=== PATIENT | female | born 1950 | race Caucasian/White ===

== ENCOUNTER → 2019-04-24 | Outpatient (CLI) | payer MEDICARE, BC ==
[2019-04-24 12:41] LABS: ABSOLUTE BASOPHILS # (AUTO) 0.1 10^3/uL (0.0-0.2); ABSOLUTE EOSINOPHILS # (AUTO) 0.3 10^3/uL (0.0-0.6); ABSOLUTE LYMPHOCYTES (AUTO) 2.1 10^3/uL (0.5-4.7); ABSOLUTE MONOCYTES (AUTO) 0.7 10^3/uL (0.1-1.4); BASOPHILS % (AUTO) 1.5 % (0-2); EOSINOPHILS % (AUTO) 4.4 % (0-6); HEMATOCRIT 43.2 % (36.0-47.0); LYMPHOCYTES % (AUTO) 34.1 % (13-45); MEAN CORPUSCULAR HEMOGLOBIN 31.3 pg (27.0-33.4); MEAN CORPUSCULAR HGB CONC 34.7 g/dL (32.0-36.0); MEAN CORPUSCULAR VOLUME 90 fl (80-97); MONOCYTES % (AUTO) 11.8 % (3-13); PLATELET COUNT 190 10^3/uL (150-450); RED CELL DISTRIBUTION WIDTH 13.6 % (11.5-14.0); SEGMENTED NEUTROPHILS % (AUTO) 48.2 % (42-78); TOTAL CELLS COUNTED % (AUTO) 100 %; WHITE BLOOD COUNT 6.2 10^3/uL (4.0-10.5)
[2019-04-24 12:59] LABS: ALANINE AMINOTRANSFERASE 31 U/L (9-52); ALBUMIN 4.4 g/dL (3.5-5.0); ALKALINE PHOSPHATASE 55 U/L (38-126); ANION GAP 7 (5-19); ASPARTATE AMINO TRANSFERASE 24 U/L (14-36); BILIRUBIN,DIRECT 0.3 mg/dL (0.0-0.4); BILIRUBIN,TOTAL 1.2 mg/dL (0.2-1.3); BLOOD UREA NITROGEN 16 mg/dL (7-20); CALCIUM 10.3 mg/dL (8.4-10.2); CARBON DIOXIDE 32 mmol/L (22-30); CHLORIDE 101 mmol/L (98-107); GLUCOSE 94 mg/dL (75-110); POTASSIUM 4.4 mmol/L (3.6-5.0); SODIUM 139.6 mmol/L (137-145); TOTAL PROTEIN 7.4 g/dL (6.3-8.2)
== END ==
LOC: OD 11:37
PROVIDERS: ATTEND Physician Assistant
DX: Z11.2 Encounter for screening for other bacterial diseases (principal); I10 Essential (primary) hypertension
CPT/HCPCS: 36415; 80053; 85025; 87070

== ENCOUNTER 2020-01-06 12:40 | Observation (INO) | payer MEDICARE, BC ==
--- NOTE | 2020-01-06 13:20 | ER Document Report ---
ED Medical Screen (RME) - General Chief Complaint: Dizziness Stated Complaint: DIZZINESS, LEFT ARM NUMBNESS Time Seen by Provider: 01/06/20 13:18 Primary Care Provider: NAVEED SHAH PA-C [Primary Care Provider] - Follow up as needed Mode of Arrival: Wheelchair Information source: Patient Notes: 69-year-old female presented to ED for complaint of a weird sensation wavelike coming over her while she was driving. She states soon after that she had some left chest pain and then numbness to her left shoulder and arm. She states she would not of been so upset except for that did happen the second time. She states she is continued to have some numbness in the left shoulder and some pain in the left side of her chest. She states the pain is about a 2 at this time. She states that its worst it was a 4. She states she has high blood pressure high cholesterol and hyperinsulinemia. She states she does take metformin for the hyperinsulinemia I have greeted and performed a rapid initial assessment of this patient. A comprehensive ED assessment and evaluation of the patient, analysis of test results and completion of medical decision making process will be conducted by an additional ED providers. TRAVEL OUTSIDE OF THE [place] IN LAST 30 DAYS: No - Related Data Allergies/Adverse Reactions: codeine [Codeine] Adverse Reaction (Intermediate, Verified 01/06/20 13:16) Elevated heart rate prednisone [Prednisone] Adverse Reaction (Verified 01/06/20 13:16) Past Medical History - Past Medical History Cardiac Medical History: Reports: Hx Hypercholesterolemia, Hx Hypertension Denies: Hx Coronary Artery Disease, Hx Heart Attack Pulmonary Medical History: Reports: Hx Bronchitis - once a yr, Hx Pneumonia - 1- 2 yrs ago last time Denies: Hx Asthma, Hx COPD, Hx Tuberculosis Neurological Medical History: Denies: Hx Cerebrovascular Accident, Hx Seizures Endocrine Medical History: Reports: Hx Hypothyroidism. Denies: Hx Graves' Disease, Hx Hyperthyroidism GI Medical History: Reports: Hx Irritable Bowel. Denies: Hx Crohn's Disease, Hx Gastroesophageal Reflux Disease, Hx Hepatitis, Hx Hiatal Hernia, Hx Liver Failure, Hx Pancreatitis, Hx Ulcer Musculoskeltal Medical History: Reports Hx Arthritis - Back, Denies Hx Systemic Lupus Erythematosus Infectious Medical History: Denies: Hx Hepatitis Past Surgical History: Reports: Hx Appendectomy, Hx Cholecystectomy. Denies: Hx Colostomy, Hx Hysterectomy, Hx Mastectomy, Hx Open Heart Surgery, Hx Pacemaker - Immunizations Hx Diphtheria, Pertussis, Tetanus Vaccination: Yes Physical Exam - Vital signs Vitals: Temp Pulse Resp BP Pulse Ox 98.2 F 69 16 151/69 H 96 01/06/20 13:04 01/06/20 13:04 01/06/20 13:04 01/06/20 13:04 01/06/20 13:04 Course - Vital Signs Vital signs: Temp Pulse Resp BP Pulse Ox 98.2 F 69 16 151/69 H 96 01/06/20 13:04 01/06/20 13:04 01/06/20 13:04 01/06/20 13:04 01/06/20 13:04 Doctor's Discharge - Discharge Referrals: NAVEED SHAH PA-C [Primary Care Provider] - Follow up as needed
[2020-01-06] MEDS ORDERED: ASPIRIN 81 MG TABLET, CHEWABLE PO ONE (13:23)
--- NOTE | 2020-01-06 13:28 | EKG REPORT ---
SEVERITY:- ABNORMAL ECG - SINUS RHYTHM LEFT VENTRICULAR HYPERTROPHY : Confirmed by: Dominic Lenz MD 06-Jan-2020 13:28:12
--- NOTE | 2020-01-06 13:58 | RADIOLOGY REPORT (SQ) ---
EXAM DESCRIPTION: CHEST 2 VIEWS COMPLETED DATE/TIME: 01/06/2020 12:35 pm REASON FOR STUDY: Chest pain COMPARISON: 02/12/2014 EXAM PARAMETERS: NUMBER OF VIEWS: two views TECHNIQUE: Digital Frontal and Lateral radiographic views of the chest acquired. RADIATION DOSE: NA LIMITATIONS: none FINDINGS: LUNGS AND PLEURA: No opacities, masses or pneumothorax. No pleural effusion. MEDIASTINUM AND HILAR STRUCTURES: No masses or contour abnormalities. HEART AND VASCULAR STRUCTURES: Heart normal size. No evidence for failure. BONES: No acute findings. HARDWARE: None in the chest. OTHER: No other significant finding. IMPRESSION: NO ACUTE RADIOGRAPHIC FINDING IN THE CHEST. TECHNICAL DOCUMENTATION: JOB ID: [id number] 2010 [employer]- All Rights Reserved Reading location - IP/workstation name: [email or web address]
[2020-01-06 14:01] LABS: ABSOLUTE BASOPHILS # (AUTO) 0.1 10^3/uL (0.0-0.2); ABSOLUTE EOSINOPHILS # (AUTO) 0.2 10^3/uL (0.0-0.6); ABSOLUTE LYMPHOCYTES (AUTO) 1.7 10^3/uL (0.5-4.7); ABSOLUTE MONOCYTES (AUTO) 0.6 10^3/uL (0.1-1.4); ABSOLUTE NEUT (AUTO) 3.6 10^3/uL (1.7-8.2); BASOPHILS % (AUTO) 1.2 % (0-2); EOSINOPHILS % (AUTO) 3.9 % (0-6); HEMATOCRIT 43.6 % (36.0-47.0); HEMOGLOBIN 15.4 g/dL (12.0-15.5); MEAN CORPUSCULAR HGB CONC 35.3 g/dL (32.0-36.0); MEAN CORPUSCULAR VOLUME 91 fl (80-97); MONOCYTES % (AUTO) 10.1 % (3-13); PLATELET COUNT 205 10^3/uL (150-450); RED BLOOD COUNT 4.81 10^6/uL (3.72-5.28); RED CELL DISTRIBUTION WIDTH 13.2 % (11.5-14.0); SEGMENTED NEUTROPHILS % (AUTO) 57.8 % (42-78); TOTAL CELLS COUNTED % (AUTO) 100 %; WHITE BLOOD COUNT 6.2 10^3/uL (4.0-10.5)
[2020-01-06 14:15] LABS: ALBUMIN 4.6 g/dL (3.5-5.0); ALKALINE PHOSPHATASE 59 U/L (38-126); ANION GAP 9 (5-19); ASPARTATE AMINO TRANSFERASE 25 U/L (14-36); BILIRUBIN,DIRECT 0.1 mg/dL (0.0-0.4); BILIRUBIN,TOTAL 1.1 mg/dL (0.2-1.3); BLOOD UREA NITROGEN 15 mg/dL (7-20); CALCIUM 10.2 mg/dL (8.4-10.2); CARBON DIOXIDE 30 mmol/L (22-30); CHLORIDE 101 mmol/L (98-107); GLUCOSE 102 mg/dL (75-110); POTASSIUM 4.3 mmol/L (3.6-5.0); TOTAL PROTEIN 7.9 g/dL (6.3-8.2)
--- NOTE | 2020-01-06 15:58 | ER Document Report ---
ED General - General Chief Complaint: Arm Problem Stated Complaint: DIZZINESS, LEFT ARM NUMBNESS Time Seen by Provider: 01/06/20 13:18 Primary Care Provider: NAVEED SHAH PA-C [NO LOCAL MD] - Follow up as needed Mode of Arrival: Wheelchair Information source: Patient Notes: Patient is a 69-year-old female presenting to the emergency department chief complaint of near syncope and dizziness. Patient states it occurred while driving at about 1230 this morning. She states that it was very transient in nature and feels back to baseline other than the left shoulder and upper chest discomfort. Patient states that after the event she had left arm and shoulder pain/discomfort. Patient denies travel history trauma history sick contacts bad food exposure. Patient denies nausea vomiting diarrhea cough or cold symptoms. TRAVEL OUTSIDE OF THE [place] IN LAST 30 DAYS: No - Related Data Allergies/Adverse Reactions: codeine [Codeine] Adverse Reaction (Intermediate, Verified 01/06/20 13:16) Elevated heart rate prednisone [Prednisone] Adverse Reaction (Verified 01/06/20 13:16) Home Medications: metformin - hyper insulin. htn. atenolol. asa. zetia. flonase. synthroid. temisnelan/hctz. metformin. b12. coq10. vit e d3. mag. vitamin c Past Medical History - General Information source: Patient - Social History Smoking Status: Former Smoker Chew tobacco use (# tins/day): No Frequency of alcohol use: None Drug Abuse: None Lives with: Spouse/Significant other Family History: Reviewed & Not Pertinent Patient has suicidal ideation: No Patient has homicidal ideation: No - Past Medical History Cardiac Medical History: Reports: Hx Hypercholesterolemia, Hx Hypertension Denies: Hx Coronary Artery Disease, Hx Heart Attack Pulmonary Medical History: Reports: Hx Bronchitis - once a yr, Hx Pneumonia - 1- 2 yrs ago last time Denies: Hx Asthma, Hx COPD, Hx Tuberculosis Neurological Medical History: Denies: Hx Cerebrovascular Accident, Hx Seizures Endocrine Medical History: Reports: Hx Hypothyroidism. Denies: Hx Graves' Disease, Hx Hyperthyroidism GI Medical History: Reports: Hx Irritable Bowel. Denies: Hx Crohn's Disease, Hx Gastroesophageal Reflux Disease, Hx Hepatitis, Hx Hiatal Hernia, Hx Liver Failure, Hx Pancreatitis, Hx Ulcer Musculoskeletal Medical History: Reports Hx Arthritis - Back, Denies Hx Systemic Lupus Erythematosus Infectious Medical History: Denies: Hx Hepatitis Past Surgical History: Reports: Hx Appendectomy, Hx Cholecystectomy. Denies: Hx Colostomy, Hx Hysterectomy, Hx Mastectomy, Hx Open Heart Surgery, Hx Pacemaker - Immunizations Hx Diphtheria, Pertussis, Tetanus Vaccination: Yes Hx Pneumococcal Vaccination: 11/04/08 Review of Systems - Review of Systems Notes: REVIEW OF SYSTEMS: CONSTITUTIONAL : Denies fever, chills, or sweats. Denies recent illness. EENT: Denies eye, ear, throat, or mouth pain or symptoms. Denies nasal or sinus congestion. CARDIOVASCULAR: Denies chest pain. RESPIRATORY: Denies cough, cold, or chest congestion. Denies shortness of breath, difficulty breathing, or wheezing. GASTROINTESTINAL: Denies abdominal pain. Denies nausea, vomiting, or diarrhea. Denies constipation. GENITOURINARY: Denies difficulty urinating, painful urination, burning, frequ ency, or blood in urine. MUSCULOSKELETAL: Denies neck or back pain or joint pain or swelling. Patient reports left shoulder and arm pain after the event. SKIN: Denies rash or skin lesions. HEMATOLOGIC : Denies easy bruising or bleeding. NEUROLOGICAL: Patient reports dizziness/near syncope while driving at about 1230 this morning without provocation. PSYCHIATRIC: Denies suicidal or homicidal ideations 10 Systems are negative unless otherwise specified above Physical Exam - Vital signs Vitals: Temp Pulse Resp BP Pulse Ox 98.2 F 69 16 151/69 H 96 01/06/20 13:04 01/06/20 13:04 01/06/20 13:04 01/06/20 13:04 01/06/20 13:04 Notes: PHYSICAL EXAMINATION: GENERAL: Well-appearing, well-nourished and in no acute distress. HEAD: Atraumatic, normocephalic. EYES: Pupils equal round and reactive to light, extraocular movements intact, sclera anicteric, conjunctiva are normal. ENT: nares patent, oropharynx clear without exudates. Moist mucous membranes. NECK: Normal range of motion, supple without lymphadenopathy, no appreciable JVD LUNGS: Lungs clear to auscultation bilaterally and equal. No wheezes rales or rhonchi. HEART: Regular rate and rhythm without murmurs ABDOMEN: Soft, nontender, normal bowel sounds. No guarding, no rebound. No masses appreciated. EXTREMITIES: Active full range of motion, no pitting or edema. No cyanosis. 2+ pulses x4 NEUROLOGICAL: No focal neurological deficits. Moves all extremities spontaneously and on command. SKIN: Warm, Dry, and intact. Normal turgor, no rashes or lesions noted. - Notes Notes: PHYSICAL EXAMINATION: GENERAL: Well-appearing, well-nourished and in no acute distress. HEAD: Atraumatic, normocephalic. EYES: Pupils equal round and reactive to light, extraocular movements intact, sclera anicteric, conjunctiva are normal. ENT: nares patent, oropharynx clear without exudates. Moist mucous membranes. NECK: Normal range of motion, supple without lymphadenopathy, no appreciable JVD LUNGS: Lungs clear to auscultation bilaterally and equal. No wheezes rales or rhonchi. HEART: Regular rate and rhythm without murmurs ABDOMEN: Soft, nontender, normal bowel sounds. No guarding, no rebound. No masses appreciated. EXTREMITIES: Active full range of motion, no pitting or edema. No cyanosis. 2+ pulses x4 NEUROLOGICAL: At time of evaluation the patient is alert and oriented x3, Glascow coma scale of 15, cranial nerves II through XII are grossly intact, sensations intact, motor is intact, there are no signs of nystagmus, there is no pronator drift, there is no facial asymmetry, tongue protrusion is midline, reflexes are equal and bilateral, patient ambulates without ataxia, patient answers all questions appropriately follows commands appropriately. SKIN: Warm, Dry, and intact. Normal turgor, no rashes or lesions noted. Course - Re-evaluation Re-evalutation: 01/06/20 17:06 Patient has been maintained in the emergency department on a transportation sales consultant while present. Patient has been reevaluated several times while in the emergency department and no signs of decompensation have been noted. After evaluation of laboratory EKG and radiologic studies I see no signs of pneumonia, pneumothorax, acute myocardial infarction, unstable angina dissection or pulmonary embolism, there are no signs of rib fractures, no signs of acute coronary syndrome and at this time feel the patient with her symptomatology I feel most comfortable with the patient staying for cardiac work-up/rule out. Patient has continued to be pain-free. Patient did receive aspirin per protocol in triage and is receiving half an inch of Nitropaste in the emergency department. - Vital Signs Vital signs: Temp Pulse Resp BP Pulse Ox 98.2 F 68 15 151/69 H 96 01/06/20 13:04 01/06/20 16:13 01/06/20 16:13 01/06/20 13:04 01/06/20 13:04 - Laboratory Result Diagrams: 01/06/20 13:46 01/06/20 13:46 Discharge - Discharge Clinical Impression: Dizziness, Anginal equivalent Arrhythmia Qualifiers: Arrhythmia type: unspecified cardiac arrhythmia Qualified Code(s): I49.9 - Cardiac arrhythmia, unspecified Condition: Stable Disposition: ADMITTED OBSERVATION Admitting Provider: Darío (Hospitalist) Unit Admitted: Telemetry Referrals: NAVEED SHAH PA-C [NO LOCAL MD] - Follow up as needed
[2020-01-06] MEDS ORDERED: NITROGLYCERIN 2% OINTMENT 1 GM PACKET TP ONE (17:05)
[2020-01-06] MEDS ORDERED: ACETAMINOPHEN 325 MG TABLET PO PRN (17:57)
[2020-01-06] MEDS ORDERED: IPRATROPIUM/ALBUTEROL 0.5-2.5 MG/3 ML AMPUL NEB PRN (17:57)
[2020-01-06] MEDS ORDERED: OXYCODONE-ACETAMINOPHEN 5-325 MG TABLET PO PRN (17:57)
[2020-01-06] MEDS ORDERED: ZOLPIDEM TARTRATE 5 MG TABLET PO PRN (17:57)
[2020-01-06] MEDS ORDERED: MAGNESIUM HYDROXIDE SUSP 30 ML UDCUP PO PRN (17:57)
[2020-01-06] MEDS ORDERED: ONDANSETRON 4 MG TAB.RAPDIS PO PRN (17:57)
--- NOTE | 2020-01-06 18:17 | PDOC H&P ---
History of Present Illness Admission Date/PCP: 01/06/20 17:36 TONY KIDD MD Patient complains of: Feeling somewhat dizzy and woozy whilst driving today. History of Present Illness: SHANNON POWELL is a 69 year old female Who presents to the emergency room with complaints of feeling somewhat dizzy and woozy. She said she was driving. She had been fine prior to this and then started driving and felt somewhat out of sorts. She said she felt like she may be going to pass out. She pulled over and this feeling lasted a few seconds and then went away. She started driving again and said she had another episode. She complained of associated transient chest pain with radiation down her left shoulder. This symptom also disappeared after a few seconds. She decided to come to the emergency room for further evaluation though. She gives a history of her mother having a heart attack at age 50. She has of denies any significant coronary artery disease. She denies smoking or hypertension. She started using metformin a few months ago but otherwise denies any other significant issues. EKG was found to be without any arrhythmia. Past Medical History Cardiac Medical History: Reports: Hyperlipidema, Hypertension Denies: Coronary Artery Disease, Myocardial Infarction Pulmonary Medical History: Reports: Bronchitis - once a yr, Pneumonia - 1-2 yrs ago last time Denies: Asthma, Chronic Obstructive Pulmonary Disease (COPD), Tuberculosis Neurological Medical History: Denies: Seizures Endocrine Medical History: Reports: Hypothyroidism Denies: Hyperthyroidism GI Medical History: Denies: Crohn's Disease, Gastroesophageal Reflux Disease, Hepatitis, Hiatal Hernia Musculoskeltal Medical History: Reports: Arthritis - Back Hematology: Denies: Anemia, Sickle Cell Disease Past Surgical History Past Surgical History: Reports: Appendectomy, Cholecystectomy Denies: Amputation, Colostomy, Hysterectomy, Mastectomy, Pacemaker Social History Information Source: Patient Lives with: Spouse/Significant other Smoking Status: Former Smoker Electronic Cigarette use?: No Hx Recreational Drug Use: No Hx Prescription Drug Abuse: No - Advance Directive Resuscitation Status: Full Code Family History Family History: Reviewed & Not Pertinent Parental Family History Reviewed: Yes Children Family History Reviewed: Yes Sibling(s) Family History Reviewed.: Yes Medication/Allergy Home Medications: Aspirin [Aspirin 81 mg Chewable Tablet] 81 mg PO DAILY 11/29/11 Levothyroxine Sodium [Synthroid 112 Mcg Tablet] 112 mcg PO DAILY 11/29/11 Co Q-10 1 tab PO DAILY 01/15/12 Fluticasone Furoate 2 spray NASL PRN PRN 01/15/12 Vitamin E 400 Unit Capsule 1 cap PO DAILY 01/15/12 Ezetimibe [Zetia 10 mg Tablet] 10 mg PO DAILY 12/07/13 Atenolol [Tenormin] 25 mg PO DAILY 01/06/20 Cholecalciferol (Vitamin D3) [Vitamin D3] 5,000 unit PO DAILY 01/06/20 Cyanocobalamin (Vitamin B-12) [Vitamin B-12 1000 mcg Tablet] 1,000 mcg PO DAILY 01/06/20 Metformin HCl [Metformin HCl ER] 500 mg PO MEALS 01/06/20 Telmisartan/Hydrochlorothiazid [Telmisartan-Hctz 40-12.5 mg Tb] 1 tab PO DAILY 01/06/20 Allergies/Adverse Reactions: codeine [Codeine] Adverse Reaction (Intermediate, Verified 01/06/20 13:16) Elevated heart rate prednisone [Prednisone] Adverse Reaction (Verified 01/06/20 13:16) Review of Systems All systems: reviewed and no additional remarkable complaints except as stated Neurological: PRESENT: dizziness Physical Exam Vital Signs: Temp Pulse Resp BP Pulse Ox 98.2 F 68 15 151/69 H 96 01/06/20 13:04 01/06/20 16:13 01/06/20 16:13 01/06/20 13:04 01/06/20 13:04 Intake & Output 01/05/20 01/06/20 01/07/20 06:59 06:59 06:59 Weight 91.626 kg General appearance: PRESENT: no acute distress, well-developed, well-nourished Head exam: PRESENT: atraumatic, normocephalic Eye exam: PRESENT: conjunctiva pink, EOMI, PERRLA. ABSENT: scleral icterus Ear exam: PRESENT: normal external ear exam Mouth exam: PRESENT: moist, tongue midline Neck exam: ABSENT: carotid bruit, JVD, lymphadenopathy, thyromegaly Respiratory exam: PRESENT: clear to auscultation tami. ABSENT: rales, rhonchi, wheezes Cardiovascular exam: PRESENT: RRR. ABSENT: diastolic murmur, rubs, systolic murmur Pulses: PRESENT: normal dorsalis pedis pul Vascular exam: PRESENT: normal capillary refill GI/Abdominal exam: PRESENT: normal bowel sounds, soft. ABSENT: distended, guarding, mass, organolmegaly, rebound, tenderness Rectal exam: PRESENT: deferred Extremities exam: PRESENT: full ROM. ABSENT: calf tenderness, clubbing, pedal edema Neurological exam: PRESENT: alert, awake, oriented to person, oriented to place, oriented to time, oriented to situation, CN II-XII grossly intact. ABSENT: motor sensory deficit Psychiatric exam: PRESENT: appropriate affect, normal mood. ABSENT: homicidal ideation, suicidal ideation Skin exam: PRESENT: dry, intact, warm. ABSENT: cyanosis, rash Results Laboratory Results: 01/06/20 13:46 01/06/20 13:46 01/06/20 01/06/20 13:46 13:46 WBC 6.2 RBC 4.81 Hgb 15.4 Hct 43.6 MCV 91 MCH 32.0 MCHC 35.3 RDW 13.2 Plt Count 205 Seg Neutrophils % 57.8 Sodium 140.1 Potassium 4.3 Chloride 101 Carbon Dioxide 30 Anion Gap 9 BUN 15 Creatinine 0.69 Est GFR ( Amer) > 60 Glucose 102 Calcium 10.2 Total Bilirubin 1.1 AST 25 Alkaline Phosphatase 59 Total Protein 7.9 Albumin 4.6 01/06/20 01/06/20 13:46 16:41 Troponin I < 0.012 < 0.012 Impressions: Chest X-Ray 01/06/20 13:22 IMPRESSION: NO ACUTE RADIOGRAPHIC FINDING IN THE CHEST. Assessment and Plan - Diagnosis (1) Dizziness Is this a current diagnosis for this admission?: Yes (2) Chest pain Is this a current diagnosis for this admission?: Yes - Plan Summary Summary: Patient symptoms are really not clear. She will be admitted under observation. We will obtain serial cardiac enzymes as well as obtain a CTA as she had compl ained of dizziness. Echocardiogram can be obtained as outpatient. A carotid Doppler study will also be done. - Time Time Spent with patient: 25-34 minutes
--- NOTE | 2020-01-06 19:32 | RADIOLOGY REPORT (SQ) ---
EXAM DESCRIPTION: CT HEAD WITHOUT COMPLETED DATE/TIME: 01/06/2020 7:08 pm REASON FOR STUDY: Transient dizziness I67.81 ACUTE CEREBROVASCULAR INSUFFICIENCY COMPARISON: 2009 TECHNIQUE: Axial images acquired through the brain without intravenous contrast. Images reviewed wi th bone, brain and subdural windows. Images stored on PACS. All CT scanners at this facility use dose modulation, iterative reconstruction, and/or weight based d osing when appropriate to reduce radiation dose to as low as reasonably achievable (ALARA). [facility]: Dose Right [facility]: [employer] [facility]: Dose Right [facility]: Teradose 4D [facility]: [employer] RADIATION DOSE: CT Rad equipment meets quality standard of care and radiation dose reduction techniq ues were employed. CTDIvol: 53.2 mGy. DLP: 1017 mGy-cm. mGy. LIMITATIONS: None. FINDINGS: VENTRICLES: Normal size and contour. CEREBRUM: No mass effect. No hemorrhage. No midline shift. Normal peña/white matter differentiatio n. No evidence for acute territorial infarction. CEREBELLUM: No mass effect. No hemorrhage. No alteration of density. No evidence for acute infarct ion. EXTRAAXIAL SPACES: No fluid collections. ORBITS AND GLOBE: Symmetrical contour of the globes. CALVARIUM: No depressed skull fracture. PARANASAL SINUSES: No air-fluid level. SOFT TISSUES: No hematoma. IMPRESSION: No acute intracranial hemorrhage or acute territorial infarct. TECHNICAL DOCUMENTATION: JOB ID: [id number] [place] [id number]: Final reports with documentation of one or more dose reduction techniques (e.g., Automate d exposure control, adjustment of the mA and/or kV according to patient size, use of iterative recons truction technique) 2010 [employer]- All Rights Reserved Reading location - IP/workstation name: [email or web address]
[2020-01-07 06:01] LABS: CHOLESTEROL 178.45 mg/dL (0-200); TRIGLYCERIDES 204 mg/dL (<150)
[2020-01-07 06:10] LABS: VLDL CHOLESTEROL 40.8 mg/dL (10-31)
[2020-01-07 06:13] LABS: DIRECT LDL 108 mg/dL (<100)
[2020-01-07] MEDS ORDERED: (PENDING PHARMACY ID) (Metformin Hcl [Metformin Hcl Er] 500 MG) PO SCH (08:00)
[2020-01-07] MEDS ORDERED: ASPIRIN 81 MG TABLET, CHEWABLE PO SCH (10:00)
[2020-01-07] MEDS ORDERED: LOSARTAN POTASSIUM 50 MG TABLET PO SCH (10:00)
[2020-01-07] MEDS ORDERED: CYANOCOBALAMIN (VITAMIN B-12) 1,000 MCG TABLET PO SCH (10:00)
[2020-01-07] MEDS ORDERED: EZETIMIBE 10 MG TABLET PO SCH (10:00)
[2020-01-07] MEDS ORDERED: LEVOTHYROXINE SODIUM 0.112 MG TABLET PO SCH (10:00)
[2020-01-07] MEDS ORDERED: CHOLECALCIFEROL (D3) 1,000 UNIT (25 MCG) TABLET PO SCH (10:00)
[2020-01-07] MEDS ORDERED: VITAMIN E (DL, ACETATE) 400 UNIT CAPSULE PO SCH (10:00)
[2020-01-07] MEDS ORDERED: CO Q10 PO SCH (10:00)
[2020-01-07] MEDS ORDERED: (PENDING PHARMACY ID) (Atenolol [Tenormin] 25 MG) PO SCH (10:00)
[2020-01-07] MEDS ORDERED: VITAMIN E 400 UNIT PO SCH (10:00)
[2020-01-07] MEDS ORDERED: ATENOLOL 50 MG TABLET PO SCH (10:00)
[2020-01-07] MEDS ORDERED: ENOXAPARIN SODIUM INJ 40 MG/0.4 ML DISP.SYRIN SUBCUT SCH (10:00)
[2020-01-07] MEDS ORDERED: HYDROCHLOROTHIAZIDE 12.5 MG TABLET PO SCH (10:00)
[2020-01-07] MEDS ORDERED: (PENDING PHARMACY ID) (Cholecalciferol (Vitamin D3) [Vitamin D3] 5,000 UNIT) PO SCH (10:00)
[2020-01-07] MEDS ORDERED: (PENDING PHARMACY ID) (Telmisartan/Hydrochlorothiazid [Telmisartan-Hctz 40-12.5 Mg Tb] 1 T PO SCH (10:00)
--- NOTE | 2020-01-07 16:46 | RADIOLOGY REPORT (SQ) ---
EXAM DESCRIPTION: CAROTID DOPPLER COMPLETED DATE/TIME: 01/07/2020 4:00 pm REASON FOR STUDY: Dizziness I67.81 ACUTE CEREBROVASCULAR INSUFFICIENCY COMPARISON: None. TECHNIQUE: Grayscale ultrasound, Doppler velocity and spectra, and color Doppler images acquired of the extra-cranial carotid and vertebral arteries. Images stored on PACS. LIMITATIONS: None. FINDINGS: RIGHT CAROTID CCA Velocities: Within normal limits. ICA Velocities Peak systolic 0.62 m/s. End diastolic 0.16 m/s. Proximal ICA/CCA peak systolic ratio 1.04. Scattered plaque. LEFT CAROTID CCA Velocities: Within normal limits. ICA Velocities Peak systolic 0.83 m/s. End diastolic 0.19 m/s. Proximal ICA/CCA peak systolic ratio 1.12. Scattered plaque. VERTEBRAL ARTERIES: Antegrade flow. Normal waveforms. SUBCLAVIAN ARTERIES: No finding. OTHER: No other significant finding. IMPRESSION: NO HEMODYNAMICALLY SIGNIFICANT STENOSIS. COMMENT: Quality ID #[id number]: Velocity criteria are extrapolated from the diameter data as defined by t he Society of Radiologists in Ultrasound Consensus Conference. Radiology 2003: 229; 340-346. TECHNICAL DOCUMENTATION: JOB ID: [id number] 2010 [employer]- All Rights Reserved Reading location - IP/workstation name: [email or web address]
--- NOTE | 2020-01-07 16:52 | PDOC DISCHARGE SUMMARY ---
Impression - Admit/DC Date/PCP Admission Date/Primary Care Provider: 01/06/20 17:36 TONY KIDD MD Discharge Date: 01/07/20 - Discharge Diagnosis (1) Dizziness Is this a current diagnosis for this admission?: Yes (2) Chest pain Is this a current diagnosis for this admission?: Yes - Additional Information Resuscitation Status: Full Code Discharge Diet: Cardiac Discharge Activity: Activity As Tolerated Referrals: TONY KIDD MD [Primary Care Provider] - 01/21/20 (Follow up stress test result) BRET SHINE MD [ACTIVE STAFF] - 01/19/20 10:00 am ([id number] [facility] -The office will be mailing you paperwork for you to fill out and bring to your appointment.) Home Medications: Aspirin [Aspirin 81 mg Chewable Tablet] 81 mg PO DAILY 11/29/11 Levothyroxine Sodium [Synthroid 0.112 mg Tablet] 112 mcg PO DAILY 11/29/11 Co Q-10 1 tab PO DAILY 01/15/12 Fluticasone Furoate 2 spray NASL PRN PRN 01/15/12 Vitamin E 400 Unit Capsule 1 cap PO DAILY 01/15/12 Ezetimibe [Zetia 10 mg Tablet] 10 mg PO DAILY 12/07/13 Atenolol [Tenormin] 25 mg PO DAILY 01/06/20 Cholecalciferol (Vitamin D3) [Vitamin D3] 5,000 unit PO DAILY 01/06/20 Cyanocobalamin (Vitamin B-12) [Vitamin B-12 1000 mcg Tablet] 1,000 mcg PO DAILY 01/06/20 Metformin HCl [Metformin HCl ER] 500 mg PO MEALS 01/06/20 Telmisartan/Hydrochlorothiazid [Telmisartan-Hctz 40-12.5 mg Tb] 1 tab PO DAILY 01/06/20 History of Present Illiness History of Present Illness: SHANNON POWELL is a 69 year old female Who presents to the emergency room with complaints of feeling somewhat dizzy and woozy. She said she was driving. She had been fine prior to this and then started driving and felt somewhat out of sorts. She said she felt like she may be going to pass out. She pulled over and this feeling lasted a few seconds and then went away. She started driving again and said she had another episode. She complained of associated transient chest pain with radiation down her left shoulder. This symptom also disappeared after a few seconds. She decided to come to the emergency room for further evaluation though. She gives a history of her mother having a heart attack at age 50. She has of denies any significant coronary artery disease. She denies smoking or hypertension. She started using metformin a few months ago but otherwise denies any other significant issues. EKG was found to be without any arrhythmia. Hospital Course Hospital Course: Patient was admitted to the medical unit and monitored. Serial cardiac enzymes were done which were all negative. Patient had no recurrence of her presenting symptoms. She remained hemodynamically stable. There was no evidence of dizziness. CT scan of the brain was done as well as carotid Doppler studies which were negative. We were unable to obtain an echocardiogram as well as a stress test due to technical reasons however this will be performed as outpatient as they have been set up with Dr. Shine an appointment given to patient. With hemodynamic stability and with no further intervention has been planned patient is been discharged home Physical Exam Vital Signs: Temp Pulse Resp BP Pulse Ox 97.5 F 71 16 126/52 H 92 01/07/20 07:26 01/07/20 14:00 01/07/20 08:16 01/07/20 07:26 01/07/20 08:16 Intake & Output 01/06/20 01/07/20 01/08/20 06:59 06:59 06:59 Intake Total 240 Balance 240 Weight 93.5 kg General appearance: PRESENT: no acute distress, well-developed, well-nourished Head exam: PRESENT: atraumatic, normocephalic Eye exam: PRESENT: conjunctiva pink, EOMI, PERRLA. ABSENT: scleral icterus Ear exam: PRESENT: normal external ear exam Mouth exam: PRESENT: moist, tongue midline Neck exam: ABSENT: carotid bruit, JVD, lymphadenopathy, thyromegaly Respiratory exam: PRESENT: clear to auscultation tami. ABSENT: rales, rhonchi, wheezes Cardiovascular exam: PRESENT: RRR. ABSENT: diastolic murmur, rubs, systolic murmur Pulses: PRESENT: normal dorsalis pedis pul Vascular exam: PRESENT: normal capillary refill GI/Abdominal exam: PRESENT: normal bowel sounds, soft. ABSENT: distended, guarding, mass, organolmegaly, rebound, tenderness Rectal exam: PRESENT: deferred Extremities exam: PRESENT: full ROM. ABSENT: calf tenderness, clubbing, pedal edema Neurological exam: PRESENT: alert, awake, oriented to person, oriented to place, oriented to time, oriented to situation, CN II-XII grossly intact. ABSENT: motor sensory deficit Psychiatric exam: PRESENT: appropriate affect, normal mood. ABSENT: homicidal ideation, suicidal ideation Skin exam: PRESENT: dry, intact, warm. ABSENT: cyanosis, rash Results Laboratory Results: WBC 6.2 10^3/uL (4.0-10.5) 01/06/20 13:46 RBC 4.81 10^6/uL (3.72-5.28) 01/06/20 13:46 Hgb 15.4 g/dL (12.0-15.5) 01/06/20 13:46 Hct 43.6 % (36.0-47.0) 01/06/20 13:46 MCV 91 fl (80-97) 01/06/20 13:46 MCH 32.0 pg (27.0-33.4) 01/06/20 13:46 MCHC 35.3 g/dL (32.0-36.0) 01/06/20 13:46 RDW 13.2 % (11.5-14.0) 01/06/20 13:46 Plt Count 205 10^3/uL (150-450) 01/06/20 13:46 Lymph % (Auto) 27.0 % (13-45) 01/06/20 13:46 Cataño % (Auto) 10.1 % (3-13) 01/06/20 13:46 Eos % (Auto) 3.9 % (0-6) 01/06/20 13:46 Baso % (Auto) 1.2 % (0-2) 01/06/20 13:46 Absolute Neuts (auto) 3.6 10^3/uL (1.7-8.2) 01/06/20 13:46 Absolute Lymphs (auto) 1.7 10^3/uL (0.5-4.7) 01/06/20 13:46 Absolute Monos (auto) 0.6 10^3/uL (0.1-1.4) 01/06/20 13:46 Absolute Eos (auto) 0.2 10^3/uL (0.0-0.6) 01/06/20 13:46 Absolute Basos (auto) 0.1 10^3/uL (0.0-0.2) 01/06/20 13:46 Seg Neutrophils % 57.8 % (42-78) 01/06/20 13:46 Sodium 140.1 mmol/L (137-145) 01/06/20 13:46 Potassium 4.3 mmol/L (3.6-5.0) 01/06/20 13:46 Chloride 101 mmol/L (98-107) 01/06/20 13:46 Carbon Dioxide 30 mmol/L (22-30) 01/06/20 13:46 Anion Gap 9 (5-19) 01/06/20 13:46 BUN 15 mg/dL (7-20) 01/06/20 13:46 Creatinine 0.69 mg/dL (0.52-1.25) 01/06/20 13:46 Est GFR ( Amer) > 60 (>60) 01/06/20 13:46 Est GFR (MDRD) Non-Af > 60 (>60) 01/06/20 13:46 Glucose 102 mg/dL (75-110) 01/06/20 13:46 Calcium 10.2 mg/dL (8.4-10.2) 01/06/20 13:46 Total Bilirubin 1.1 mg/dL (0.2-1.3) 01/06/20 13:46 Direct Bilirubin 0.1 mg/dL (0.0-0.4) 01/06/20 13:46 Neonat Total Bilirubin Not Reportable 01/06/20 13:46 Neonat Direct Bilirubin Not Reportable 01/06/20 13:46 Neonat Indirect Bili Not Reportable 01/06/20 13:46 AST 25 U/L (14-36) 01/06/20 13:46 ALT 25 U/L (<35) 01/06/20 13:46 Alkaline Phosphatase 59 U/L (38-126) 01/06/20 13:46 Troponin I < 0.012 ng/mL 01/07/20 04:53 Total Protein 7.9 g/dL (6.3-8.2) 01/06/20 13:46 Albumin 4.6 g/dL (3.5-5.0) 01/06/20 13:46 Triglycerides 204 mg/dL (<150) H 01/07/20 04:53 Cholesterol 178.45 mg/dL (0-200) 01/07/20 04:53 LDL Cholesterol Direct 108 mg/dL (<100) H 01/07/20 04:53 VLDL Cholesterol 40.8 mg/dL (10-31) H 01/07/20 04:53 HDL Cholesterol 46 mg/dL (>40) 01/07/20 04:53 01/06/20 01/06/20 01/07/20 13:46 16:41 04:53 Troponin I < 0.012 < 0.012 < 0.012 Impressions: Head CT 01/06/20 00:00 IMPRESSION: No acute intracranial hemorrhage or acute territorial infarct. Chest X-Ray 01/06/20 13:22 IMPRESSION: NO ACUTE RADIOGRAPHIC FINDING IN THE CHEST. Carotid Doppler Study 01/07/20 00:00 IMPRESSION: NO HEMODYNAMICALLY SIGNIFICANT STENOSIS. Plan Health Concerns: Follow-up with marketing communication manager for stress test and other interventions as appropriate Time Spent: Less than 30 Minutes Stroke Is this a Stroke Patient?: No Acute Heart Failure - Is this a Heart Failure Patient?: No
[2020-01-07 17:04] VITALS: BP 138/53
== END 2020-01-07 17:08 | disposition home or self-care (01) ==
LOC: ER 12:40 → EH 17:36 → 4S 19:20
PROVIDERS: ADMIT Internal Medicine; ATTEND Internal Medicine
DX: R42 Dizziness and giddiness (principal); R07.9 Chest pain, unspecified; E03.9 Hypothyroidism, unspecified; I10 Essential (primary) hypertension; R55 Syncope and collapse; M25.512 Pain in left shoulder; M79.602 Pain in left arm; I49.9 Cardiac arrhythmia, unspecified; R20.0 Anesthesia of skin; E16.1 Other hypoglycemia; E78.00 Pure hypercholesterolemia, unspecified; Z79.82 Long term (current) use of aspirin; Z79.899 Other long term (current) drug therapy; Z82.49 Family history of ischemic heart disease and other diseases of the circulatory system; Z79.84 Long term (current) use of oral hypoglycemic drugs; M13.88 Other specified arthritis, other site; Z87.891 Personal history of nicotine dependence
CPT/HCPCS: 93005; 99285; 36415 ×2; 85025; 80053; 84484 ×2; 80061; 93880; 71046; 70450; 93010; G0378 ×3; A9270 ×10

== ENCOUNTER → 2020-05-20 | Outpatient (CLI) | payer MEDICARE, BC ==
[2020-05-20 14:19] LABS: ABSOLUTE BASOPHILS # (AUTO) 0.1 10^3/uL (0.0-0.2); ABSOLUTE EOSINOPHILS # (AUTO) 0.2 10^3/uL (0.0-0.6); ABSOLUTE LYMPHOCYTES (AUTO) 2.1 10^3/uL (0.5-4.7); ABSOLUTE MONOCYTES (AUTO) 0.6 10^3/uL (0.1-1.4); ABSOLUTE NEUT (AUTO) 4.1 10^3/uL (1.7-8.2); BASOPHILS % (AUTO) 1.4 % (0-2); HEMATOCRIT 43.9 % (36.0-47.0); HEMOGLOBIN 15.3 g/dL (12.0-15.5); LYMPHOCYTES % (AUTO) 29.6 % (13-45); MEAN CORPUSCULAR HEMOGLOBIN 31.2 pg (27.0-33.4); MEAN CORPUSCULAR HGB CONC 34.8 g/dL (32.0-36.0); MEAN CORPUSCULAR VOLUME 90 fl (80-97); MONOCYTES % (AUTO) 8.1 % (3-13); PLATELET COUNT 205 10^3/uL (150-450); RED CELL DISTRIBUTION WIDTH 13.3 % (11.5-14.0); SEGMENTED NEUTROPHILS % (AUTO) 57.9 % (42-78); TOTAL CELLS COUNTED % (AUTO) 100 %; WHITE BLOOD COUNT 7.1 10^3/uL (4.0-10.5)
[2020-05-20 14:42] LABS: ANION GAP 8 (5-19); BLOOD UREA NITROGEN 17 mg/dL (7-20); CALCIUM 10.2 mg/dL (8.4-10.2); CARBON DIOXIDE 29 mmol/L (22-30); CHLORIDE 99 mmol/L (98-107); GLUCOSE 114 mg/dL (75-110); POTASSIUM 4.1 mmol/L (3.6-5.0)
--- NOTE | 2020-05-20 17:31 | EKG REPORT ---
SEVERITY:- ABNORMAL ECG - SINUS RHYTHM CONSIDER LEFT VENTRICULAR HYPERTROPHY : Confirmed by: Rojelio Aldana MD 20-May-2020 17:31:28
== END ==
LOC: OD 13:11
PROVIDERS: ATTEND Physician Assistant
DX: Z01.812 Encounter for preprocedural laboratory examination (principal); Z01.89 Encounter for other specified special examinations; I10 Essential (primary) hypertension; E78.5 Hyperlipidemia, unspecified
CPT/HCPCS: 36415; 80048; 85025; 93005; 93010